=== PATIENT | female | born 1930 | race Caucasian/White ===

== ENCOUNTER 2017-10-02 12:12 | Outpatient (RCR) | payer OTHER, BC ==
[~2017-10-02] VITALS: Ht 152.4 cm; Wt 39.0 kg
== END 2017-10-12 | disposition home or self-care (01) ==
LOC: WCC 12:12
DX: L97.325 Non-pressure chronic ulcer of left ankle with muscle involvement without evidence of necrosis (principal); I10 Essential (primary) hypertension; M19.90 Unspecified osteoarthritis, unspecified site; Z90.89 Acquired absence of other organs; Z90.49 Acquired absence of other specified parts of digestive tract; Z88.0 Allergy status to penicillin
CPT/HCPCS: 11043; 11046